=== PATIENT | female | born 1965 ===

== ENCOUNTER 2020-09-17 06:25 | Day surgery (SDC) | payer OTHER ==
[~2020-09-17 06:25] MED LIST: TOPROL XL25 M1 PO
[2020-09-17] MEDS ORDERED: DOXYCYCLINE HY100 M2 PO (14:15)
[2020-09-17] MEDS ORDERED: NAPROXEN500 MG PO (14:15)
== END 2020-09-17 17:45 | disposition home or self-care (01) ==
LOC: CIR.AMB 06:25
PROVIDERS: ATTEND Obstetrics & Gynecology
DX: D25.0 Submucous leiomyoma of uterus (principal); N84.0 Polyp of corpus uteri; Z20.822 Contact with and (suspected) exposure to COVID-19